=== PATIENT | female | born 1945 | race Caucasian/White ===

== ENCOUNTER 2016-04-25 07:08 | Day surgery (SDC) | payer MEDICARE ==
[2016-04-21 12:15] LABS: HEMOGLOBIN 11.9 g/dL (12.0-16.0)
[2016-04-21 12:33] LABS: BUN (BLOOD UREA NITROGEN) 24 MG/DL (6-23); CALCIUM, SERUM 9.2 MG/DL (8.5-10.4); CHLORIDE, SERUM 103 MMOL/L (96-112); CO2 (CARBON DIOXIDE) 28 MMOL/L (24-34); CREATININE 0.61 MG/DL (0.55-1.02); GFR AFRICAN AMERICAN 106 ML/MIN (>=60); GFR NON AFRICAN AMERICAN 92 ML/MIN (>=60); GLUCOSE, SERUM 89 MG/DL (60-99); POTASSIUM, SERUM 4.2 MMOL/L (3.5-5.3); SODIUM, SERUM 141 MMOL/L (135-148)
--- NOTE | ~2016-04-25 | OP ---
Record Of Operation [facility] [address] [place]. [address] NAME: JIMMY DUPREE : 45 STATUS : REG [facility]#: [id number] AGE: 70 ADM/REG DATE : 04/25/16 MR#: [id number] REPORT SERV DATE: 04/25/16 DICTATED BY: ANDREW VALLES III DATE: 04/25/16 REPORT STATUS : Draft TRANSCRIBED BY: MODL DATE: 04/25/16 DATE OF PROCEDURE: 04/25/2016 PREOPERATIVE DIAGNOSIS: Dysuria. POSTOPERATIVE DIAGNOSIS: Dysuria plus normal-appearing bladder. PROCEDURE: Cystoscopy with hydrodistention. SURGEON: Andrew Valles M.D. ANESTHESIA: General. SPECIMENS: None. DRAINS: None. INDICATION: Ms Dupree is a 70-year-old, white female, who has routine bladder treatments in the office consisting of urethral dilation and bladder installations. She is having more difficulty with bladder symptoms recently. Consent was obtained for cystoscopy and hydrodistention. PROCEDURE IN DETAIL: After consent was obtained, the patient was identified. She was taken to the OR and put to sleep. She was positioned in the low lithotomy position and prepped and draped in usual fashion. The 22-Italian cystoscope was made ready and inserted into the bladder. The bladder was then inspected and it appeared normal. There were no tumors, stones, or foreign bodies. The ureteral orifices were normally positioned and had a normal configuration. With irrigation approximately 80 cm above the level of the bladder, hydrodistention was performed twice. The volume was approximately 850 mL. Both the times, there was minimal bleeding from the urothelium. The patient was awakened and taken to the recovery in stable condition. PH/MODL Andrew Valles III, M.D. / [id number] CC: Arpit Peters III, RUSSELL BLAINE
[~2016-04-25 07:08] MED LIST: LUMIGAN2.5 ML OPH; MELATONIN; NORCO1 TA1 PO; REQUIP1 PO; SINCR25100 PO; VITAMINS; ZANAFLEX 4 MG TA4 MG PO
== END 2016-04-25 16:17 | disposition home or self-care (01) ==
LOC: SDC 07:08
PROVIDERS: Urology
PROC: 0T7B8ZZ Dilation of Bladder, Via Natural or Artificial Opening Endoscopic (ICD-10-PCS; principal; 2016-04-25 09:00)
DX: R30.0 Dysuria (principal); N30.10 Interstitial cystitis (chronic) without hematuria; G25.81 Restless legs syndrome; D64.9 Anemia, unspecified; G20 Parkinson's disease; H40.9 Unspecified glaucoma; M41.9 Scoliosis, unspecified; Z98.890 Other specified postprocedural states; Z90.89 Acquired absence of other organs; Z98.41 Cataract extraction status, right eye; Z96.1 Presence of intraocular lens; M19.90 Unspecified osteoarthritis, unspecified site; Z79.899 Other long term (current) drug therapy; Z79.891 Long term (current) use of opiate analgesic
CPT/HCPCS: 80048; 85014; 85018; 93005; J2250; J2405; J3010